=== PATIENT | female | born 1975 | race Caucasian/White ===

== ENCOUNTER → 2018-11-03 | Outpatient (CLI) | payer OTHER, SELFPAY ==
--- NOTE | 2018-11-03 14:45 | ECC_PTH ---
PATIENT: RAMSEY ARCE LOC: [facility] U#:[id number] AGE/SX: 43/F ROOM: RE11/03/[address]: Dr. Michael Jimenez MD : 1975 BED: DIS: 11/03/2018 SPEC #: [id number] RECD: 11/03/18 16:13 STATUS: TIKI AUGUSTIN #: [id number] ISADORA: 11/03/18 14:[address]: Michael Jimenez DEPT: SURGICAL PATHOLOGY RECD BY: Farrah Bowens Tissues: Endocervical Procedures: Surgery Specimen Level IV HEADER OPERATION: Polypectomy PRE-OP DIAGNOSIS: Endocervical polyp TISSUE SUBMITTED: Endocervical polyp MICROSCOPIC DIAGNOSIS Endocervical polyp, biopsy: Benign endocervical polyp. RYNE:angelina 11/05/18 MICROSCOPIC DESCRIPTION Slides are reviewed. GROSS DESCRIPTION Received in fixative is one container labeled with the patient's name and designated polyp. The specimen consists of a light forman polyp measuring 2 x 1 x 0.1 cm. The specimen is totally submitted in one cassette. / AM:angelina 11/04/18 TC:5 [facility]: [id number]
[2018-11-08 15:16] LABS: HPV Reflexed? NOT INDICATED
== END | disposition home or self-care (01) ==
LOC: LABSPEC 16:27
PROVIDERS: Referring Provider Obstetrics & Gynecology; Visit Provider Obstetrics & Gynecology
DX: N84.1 Polyp of cervix uteri (principal); Z12.4 Encounter for screening for malignant neoplasm of cervix
CPT/HCPCS: 87624; 88175; 88305; G0145

== ENCOUNTER 2023-03-02 21:45 | Emergency (ER) | payer OTHER, SELFPAY ==
[2023-03-02 21:46] VITALS: BP 138/93; PULSE 74; RESP 16; TEMP 36.6; O2SAT 98; BMI 40.3
--- NOTE | 2023-03-02 22:04 | RAD_ITS ---
INDICATION: injury EXAMINATION/TECHNIQUE: X-RAY - LEFT XR Hand Min 3 Views 3 VIEWS COMPARISON: None. FINDINGS: Slight degenerative change at base of thumb and triscaphe. Preserved MCP joint spaces. Mild narrowing of the fifth IP joint spaces. Other joint spaces are grossly intact. No fracture. No erosion. Mineralization within normal limits. No soft tissue radiopaque foreign body detected. RAD/Hand Min 3 Views IMPRESSION: No acute osseous abnormality. Slight degenerative change. . Electronically Signed: Vince Henderson MD at 22:45 EDT ,
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
--- NOTE | 2023-03-02 22:15 | RAD_ITS ---
INDICATION: injury EXAMINATION/TECHNIQUE: X-RAY - LEFT XR Wrist Min 3 Views 3 VIEWS COMPARISON: None. FINDINGS: Some slight degenerative change at the triscaphe. Radiocarpal joint space intact. There is no scaphoid fracture There is no dislocation. Grossly clear anatomic alignment. Question dorsal soft tissue swelling. RAD/Wrist min 3 Views IMPRESSION: No fracture detected. Question mild soft tissue swelling. Mild degenerative change. Electronically Signed: Vince Henderson MD at 22:44 EDT ,
[2023-03-02 23:03] VITALS: BP 124/60; PULSE 82; RESP 18; O2SAT 96
== END 2023-03-02 23:04 | disposition home or self-care (01) ==
PROVIDERS: Emergency Provider Emergency Medicine; PCP Family Medicine; Visit Provider Emergency Medicine
DX: S62.002A Unspecified fracture of navicular [scaphoid] bone of left wrist, initial encounter for closed fracture (principal); Z90.49 Acquired absence of other specified parts of digestive tract; V18.0XXA Pedal cycle driver injured in noncollision transport accident in nontraffic accident, initial encounter; Y93.55 Activity, bike riding
CPT/HCPCS: 29125; 73110; 73130; 99282

== ENCOUNTER → 2023-03-07 | Outpatient (CLI) | payer SELFPAY, OTHER ==
--- NOTE | 2023-03-07 11:21 | CT_ITS ---
INDICATION: fx EXAMINATION: CT - CT Upper Extremity W/O Contrast Injection TECHNIQUE: Routine noncontrast bone CT protocol was performed of the left wrist. 2-D reformats were performed by the technologist. A radiation dose optimization technique was used for this scan. IV Contrast dosage and agent: None. RADIATION DOSAGE (If Supplied By Facility): CTDIvol = ( 24.58 ) mGy, DLP = ( 597.48 ) mGycm COMPARISON: FINDINGS: SOFT TISSUES: No soft tissue swelling or gas. No radiopaque foreign body. BONES/JOINTS: No acute fracture or subluxation. Normal alignment. Preservation of the joint space. No sclerotic or destructive changes. CT/Extremity Upper without Contra IMPRESSION: No evidence of acute fracture. Electronically Signed: Bon Branch DO at 12:05 EDT Reading Location ID and State: [facility] / [place] Tel [phone], Service support ,
== END | disposition home or self-care (01) ==
LOC: CT 11:20
PROVIDERS: PCP Family Medicine; Referring Provider Orthopaedic Surgery Sports Medicine; Visit Provider Orthopaedic Surgery Sports Medicine
DX: S62.002A Unspecified fracture of navicular [scaphoid] bone of left wrist, initial encounter for closed fracture (principal)
CPT/HCPCS: 73200